=== PATIENT | male | born 2000 | race African-American/Black ===

== ENCOUNTER 2023-11-11 21:02 | Emergency (ER) | payer OTHER, SELFPAY ==
--- OUTSIDE RECORDS SUMMARY | 2023-11-11 21:05 | XMS REPORT | Continuity of Care Document ---
Author Name Unknown Address [address] [place] [address] [address] [place] [address] [facility] thconnect Address [address] [facility] [address] [facility] [place] [address] Care Team Providers Care Bolt Header Name Role Phone PCP, PATIENT DOES NOT HAVE A Primary Care Physic jethro Unavailable ARETHA BOUDREAUX Attending Clinician Unavailable Aretha Lucero Attending Clinician [phone] Unknown, Attending Attending Clinician Unavailab le Doctor Unassigned, [place] Attending Clinician U Dexter Covington Attending Clinician MITCH Yadav Attending Clinician Unavailable Mitch Jim MD Attending Clinician Physician, No Primary or Family Admitting Clinic jethro Unavailable MITCH JIM Admitting Clinician Unavailable Payers Payer Name Policy Type Policy Number Effective Date Expirati on Date Source Problems Condition Name Condition Details Condition Category Status Onset Date Resolution Date Last Treatment Date Treating Clinician Comments Source No known active problems No known active problems Disease [facility] Allergies, Adverse Reactions, Alerts Allergy Name Allergy Type Status Severity Reaction(s) Onset Date Inactive Date Treating Clinician Comments Source PENICILL IN DRUG INGREDI Active Unknown-Cmnt 10-19 00:00: 00 [facility] Penicill in Propensi ty to adverse reaction s Active Unknown - See comments 10-19 00:00: 00 [facility] Penicill ins DA Active [place] AMY 10-17 00:00: 00 [facility] Penicill ins DA Active MO AMY 06-27 00:00: 00 [facility] VERMOX DA Active U 09-10 00:00: 00 [facility] NO KNOWN ALLERGIE S Drug Class Active [facility] Social History Social Habit Start Date Stop Date Quantity Comments Source Exposure to SARS-CoV-2 (event) 2021-10-09 00:00:00 2021-10-19 20:43:00 Not sure [facility] Tobacco use and exposure 2021-10-19 00:00:00 2021-10-19 00:00:00 Never used [facility] Sex Assigned At 2000 00:00:00 2000 00:00:00 [facility] Smoking Status Start Date Stop Date Source Never smoker [facility] Unknown if ever smoked [facility] Medications Ordered Medication Name Filled Medication Name Start Date Stop Date Current Medication? Ordering Clinician Indication Dosage Frequency Signature (SIG) Comments Components Source predniSONE 20 mg tablet 10-19 00:00: 00 10-25 04:59 :00 No [id number] 40mg Take 2 tablets by mouth daily for 5 days. [facility] ketorolac (TORADOL) injection 60 mg 10-17 15:45: 00 10-17 15:00 :00 No 60mg 60 mg, Intramuscu lar, ONCE, 1 dose, 10/17/20 at 1045, NICKOLAS
Fa culty member approving Restricted medication : MITCH JIM [facility] diclofenac 75 mg EC tablet 10-17 00:00: 00 Yes [id number] 75mg Take 1 tablet by mouth 2 (two) times daily with meals. [facility] acetaminoph en (TYLENOL ARTHRITIS PAIN) 650 mg CR tablet 10-17 00:00: 00 Yes [id number] 650mg Take 1 tablet by mouth every 8 (eight) hours as needed for Pain. [facility] Vital Signs Vital Name Observation Time Observation Value Comments S dillon Systolic blood pressure 2021-10-20 01:42:00 122 mm[Hg] [facility] Diastolic blood pressure 2021-10-20 01:42:00 58 mm[Hg] [facility] Heart rate 2021-10-20 01:42:00 71 /min [facility] Body temperature 2021-10-20 01:42:00 36.89 Tammy [facility] Respiratory rate 2021-10-20 01:42:00 18 /min [facility] Body height 2021-10-20 01:42:00 182.9 cm [facility] Body weight 2021-10-20 01:42:00 61.236 kg [facility] BMI 2021-10-20 01:42:00 18.31 kg/m2 [facility] Oxygen saturation in Arterial blood by Pulse oximetry 2021-10-20 01:42:00 100 /min [facility] Systolic blood pressure 2020-10-17 14:13:00 132 mm[Hg] [facility] Diastolic blood pressure 2020-10-17 14:13:00 71 mm[Hg] [facility] Heart rate 2020-10-17 14:13:00 85 /min [facility] Body temperature 2020-10-17 14:13:00 37.11 Tammy [facility] Respiratory rate 2020-10-17 14:13:00 18 /min [facility] Body height 2020-10-17 14:13:00 182.9 cm [facility] Body weight 2020-10-17 14:13:00 56.7 kg [facility] BMI 2020-10-17 14:13:00 16.95 kg/m2 [facility] Oxygen saturation in Arterial blood by Pulse oximetry 2020-10-17 14:13:00 100 /min [facility] Procedures Procedure Date / Time Performed Performing Clinician Source [facility] STATEMENT OF PATIENT FINANCIAL RESPONSIBILITY 2021-10-19 05:01:00 Doctor Unassigned, [place] [facility] XR FOOT 3+ VW LEFT 2020-10-17 15:15:15 Andrea Jim [facility] CONSENT/REFUSAL FOR DIAGNOSIS AND TREATMENT 2020-10-17 14:05:48 Doctor Unassigned, [place] [facility] Encounters Start Date/Time End Date/Time Encounter Type Admission Type Attending [facility] Care Department Encounter ID Source 2021-10-19 20:45:00 2021-10-19 21:05:54 Outpatient R ARETHA BOUDREAUX [facility] [id number] [facility] 2021-10-19 20:45:00 2021-10-19 21:05:54 Urgent Care Aretha Boudreaux Unknown, Attending [facility] [id number] [facility] 2021-10-19 00:00:00 2021-10-19 00:00:00 Orders Only Doctor Unassigned, [place] [facility] [id number] [facility] 2021-10-17 21:52:00 2021-10-17 22:35:00 Emergency EM Dexter Lara [facility] VIKKI [id number] [facility] 2021-10-17 21:52:00 2021-10-17 22:35:00 Emergency EM Dexter Lara [facility] [id number] [facility] 2020-10-17 09:15:00 2020-10-17 11:44:00 Emergency X MITCH JIM [facility] ERT [id number] [facility] 2020-10-17 09:15:00 2020-10-17 11:44:00 Emergency Mitch Jim [facility] ([facility]) [id number] [facility] Notes Date/Time Note Provider Source 2021-10-17 22:19:00 [id number] [id number] [facility] ([facility])EMERGENCY PROVIDER REPORTREPORT#:[id number] REPORT STATUS: SignedDATE:10/17/21 TIME: 2218 PATIENT: PEARL ANTUNEZ UNIT #: [id number]#: [id number] ROOM/BED:AGE: 20 SEX: M PCP PHYS: No Primary or Family PhysicianSERVICE AUTHOR: Dexter Lara MD * ALL edits or amendments must be made on the electronic/computer document * HPI-Allergic Reaction Free Text HPI NotesFree Text HPI Ciorm51-yzzo-rlr male presents emergency department with generalized widespread rash after using a new brand of deodorant. He denies shortness of breath, wheezing, chest pain, dizziness or LOC. The patient also did not experience any nausea, vomiting or diarrhea. He has taken Benadryl and oyig-ezg-abgexet hydrocortisonecream which provided moderate relief followed by return of rash. GeneralInitial Greet Date/Time 10/17/212154 PresentationChief Complaint Allergic reaction Review of Systems ROS StatementsAll systems rev neg except as marked. Focused Review of SystemsSkinReports: Rash. Past Medical History - AdultStated Complaint ALLERGIC REACTION; RASHAllergiesCoded Allergies:Penicillins (Intermediate, AMY 10/17/21)Uncoded Allergies:VERMOX (12/08/08) Home MedicationsReported MedicationsNo Known Home Medications Smoking status: Smoking status for patients 13 years old or older: Never Smoker Physical Exam Vital SignsVital SignsFirst Documented: Result Date Time Pulse Ox 100 10/17 2152 B/P 126/71 10/17 2152 B/P Mean 89 10/17 2152 O2 Delivery Room air 10/17 2152 Temp 36.7 10/17 2152 Pulse 73 10/17 2152 Resp 17 10/17 2152 Last Documented: Result Date Time Pulse Ox 100 10/17 2152 B/P 126/71 10/17 2152 B/P Mean 89 10/17 2152 O2 Delivery Room air 10/17 2152 Temp 36.7 10/17 2152 Pulse 73 10/17 2152 Resp 17 10/17 2152 Review of Vital Signs Reviewed, Vital signs normal Focused PEGeneral/Const General/Const Awake, Alert, Well appearingMS Head Head NormocephalicEyes Eyes PERRL, No periorbital redness, No periorbital swelling, Conjunctiva NLEars/Nose/Throat Ears/Nose/Throat Airway patent, Mucous membranes moist, Pharynx NL, No pooling of secretions, No facial swellingResp/Chest Respiratory/Chest Breath sounds NL, Breath sounds = bilat, No respiratory distress, No rales, No rhonchi, No wheezing, No retractions, No stridorCardiovascular Cardiovascular Heart rate NL, Regular rhythm, Heart sounds NL, Peripheral circulation NLAbdomen/GI Abdomen/GI Soft, Non-tender, No guarding, No rebound, BS normoactiveSkin Skin Color NL Rash/Lesion Location Localized, Trunk, Axilla, Chest. Neurologic Neurologic Oriented X3, Speech NL, No motor deficits, No sensory deficits Re-Evaluation MDM Free Text MDM NotesFree Text MDM Fnpap23-cslj-uta male presents emergency department with complaints of rash and allergic reaction DDx include but not limited to allergic reaction, anaphylaxis, allergic dermatitis, eczema, contact dermatitis )( Re-Evaluation/Progress #1Text/Dict NotePatient instructed to discontinue the use of new deodorant. Patient was given Benadryl, Pepcid and prednisone while in the ED. Patient discharged, provided with strict return precautions and instructed to follow-up with primary care forTime of Re-Eval 2214)( Re-Eval Status Improved ED CourseMedication(s) OrderedMedication(s) Ordered:Antihistamine Drugs Sig/Armando Start time Last Medication Dose Route Stop Time Status Admin Diphenhydramine HCl 25 MG X1ED STA 10/17 2202 DC 10/17 PO 10/17 Gastrointestinal Drugs Sig/Armando Start time Last Medication Dose Route Stop Time Status Admin Famotidine 20 MG X1ED STA 10/18 2203 DC 10/17 PO 10/17 Hormones And Synthetic Substit Sig/Armando Start time Last Medication Dose Route Stop Time Status Admin Prednisone 40 MG X1ED STA 10/17 2202 DC 10/17 PO 10/18 2203 2210 Patient Discharge Departure Vital Signs/ConditionVital SignsFirst Documented: Result Date Time Pulse Ox 100 10/173 B/P 126/71 / 2153 B/P Mean 89 10/17 2153 O2 Delivery Room air 10/17 2152 Temp 36.7 /2152 Pulse 73 / 2153 Resp 17 10/17 2152 Last Documented: Result Date Time Pulse Ox 100 10/173 B/P 126/71 10/17 2153 B/P Mean 89 10/17 215 O2 Delivery Room air 10/17 2152 Temp 36.7 10/17 2152 Pulse 73 10/17 2152 Resp 17 10/17 2152 All vital signs available at the time of this entry have been reviewed. Condition Stable, Improved Clinical ImpressionClinical ImpressionPrimary Impression: Allergic reaction Disposition DecisionDischarge )( Discharged to Home Yes )( Time 0 )( Date 10/17/21 Discharge/Care PlanCounseled Regarding Diagnosis, Medication changes, Need for follow-up, When to return to ED(Auto) PrescriptionsCurrent Visit ScriptsNo Known Home Medications ReferralsResource [place] [facility] [place] Call for appointment Address: [facility] [place] [address] [place] [address] Quality MeasuresSmoking Cessation Screened, non user at 0238RPT #:[id number] OF REPORTEDEmergency department [id number]:19:[id number] ilable for patient [id number]:58:27 [facility]
[2023-11-11] MEDS ORDERED: FAMOTIDINE 20 MG/2 ML VIAL IV ONE (21:19)
[2023-11-11] MEDS ORDERED: METHYLPREDNISOLONE 125 MG INJ ONE (21:19)
[2023-11-11] MEDS ORDERED: DIPHENHYDRAMINE 50 MG/ML VIAL ONE (21:19)
[2023-11-11] MEDS ORDERED: NA CHLORIDE 0.9% 1,000 ML ONE (21:19)
--- NOTE | 2023-11-11 22:30 | ER ---
Nurse's Notes [facility] Name: Jennifer Arcos Age: 22 yrs Sex: Male : 2000 Arrival Date: 11/11/2023 Time: 21:02 Bed 18 Private MD: Diagnosis: Urticaria, unspecified Presentation: 11/10 21:15 Chief complaint: Patient states: I started having some swelling in my face about 20-30 jw7 minutes ago due to a possible allergic reaction. 21:15 Coronavirus screen: At this time, the client does not indicate any symptoms associated jw7 with coronavirus-19. Ebola Screen: No symptoms or risks identified at this time. Onset: The symptoms/episode began/occurred acutely. Anaphylaxis evaluation, no signs or symptoms of anaphylaxis were noted. Initial Sepsis Screen: Does the patient meet any 2 criteria? No. Patient's initial sepsis screen is negative. Does the patient have a suspected source of infection? No. Patient's initial sepsis screen is negative. Risk Assessment: Do you want to hurt yourself or someone else? Patient reports no desire to harm self or others. Onset of symptoms was November 11, 2023. Care prior to arrival: Medication(s) given: Benadryl. 21:15 Method Of Arrival: Ambulatory jw7 21:15 Acuity: LUCIA 3 jw7 Triage Assessment: 21:15 General: Appears in no apparent distress. comfortable, Behavior is calm, cooperative, jw7 appropriate for age. Pain: Denies pain. EENT: Reports Swelling to face. Neuro: Level of Consciousness is awake, alert, obeys commands, Oriented to person, place, time, situation, Appropriate for age. Cardiovascular: Heart tones S1 S2 present Capillary refill < 3 seconds Clubbing of nail beds is absent JVD is absent Patient's skin is warm and dry. Respiratory: Airway is patent Trachea midline Respiratory effort is even, unlabored, Respiratory pattern is regular, symmetrical, Breath sounds are clear bilaterally. GI: Abdomen is flat, non-distended, Bowel sounds present X 4 quads. Abd is soft and non tender X 4 quads. : No deficits noted. No signs and/or symptoms were reported regarding the genitourinary system. Derm: Skin is intact, is healthy with good turgor, Skin is dry, Skin is normal, Skin temperature is warm Reports Swelling to face. Musculoskeletal: Circulation, motion, and sensation intact. Range of motion: intact in all extremities. Historical: - Allergies: 21:15 No Known Allergies; jw7 - Home Meds: 21:15 None [Active]; jw7 - PMHx: 21:15 None; jw7 - PSHx: 21:15 None; jw7 - Immunization history:: Adult Immunizations up to date, Client reports having NOT received the Covid vaccine. Flu vaccine is up to date. - Infectious Disease History:: Denies. - Social history:: Smoking status: Reported history of juuling and/or vaping. Patient/guardian denies using alcohol, street drugs, IV drugs. Screenin:15 [facility] ED Fall Risk Assessment (Adult) History of falling in the last 3 months, jw7 including since admission No falls in past 3 months (0 pts) Confusion or Disorientation No (0 pts) Intoxicated or Sedated No (0 pts) Impaired Gait No (0 pts) Mobility Assist Device Used No (0 pt) Altered Elimination No (0 pt) Score/Fall Risk Level 0 - 2 = Low Risk Oriented to surroundings, Maintained a safe environment, Educated pt \T\ family on fall prevention, incl call for assistance when getting out of bed. Abuse screen: Denies threats or abuse. Denies injuries from another. Nutritional screening: No deficits noted. Tuberculosis screening: No symptoms or risk factors identified. Assessment: 21:15 General: See Triage Assessment. jw7 21:44 Respiratory: Airway is patent Trachea midline Respiratory effort is even, unlabored, jw7 Respiratory pattern is regular, symmetrical. 22:00 Reassessment: Patient appears in no apparent distress at this time. No changes from jw7 previously documented assessment. Patient and/or family updated on plan of care and expected duration. Pain level reassessed. Patient is alert, oriented x 3, equal unlabored respirations, skin warm/dry/pink. 22:00 Respiratory: Airway is patent Trachea midline Respiratory effort is even, unlabored, jw7 Respiratory pattern is regular, symmetrical, Breath sounds are clear bilaterally. 22:50 Reassessment: Patient appears in no apparent distress at this time. No changes from jw7 previously documented assessment. Patient and/or family updated on plan of care and expected duration. Pain level reassessed. Patient is alert, oriented x 3, equal unlabored respirations, skin warm/dry/pink. Vital Signs: 21:15 BP 123 / 84; Pulse 61; Resp 18 S; Temp 38.2; Pulse Ox 100% on R/A; Weight 65.77 kg; jw7 Height 5 ft. 10 in. ; Pain 0/10; 21:30 BP 123 / 84; Pulse 64; Resp 16 S; Pulse Ox 96% on R/A; jw7 22:00 BP 105 / 70; Pulse 75; Resp 15 S; Pulse Ox 100% on R/A; jw7 21:15 Body Mass Index 20.81 (65.77 kg, 177.8 cm) jw7 21:15 Pain Scale: Adult jw7 ED Course: 21:04 Patient arrived in ED. mr 21:06 Ana Ortiz FNP-C is [facility]. kb 21:06 Deion Ashby MD is Attending Physician. kb 21:15 Jeanine Mclain RN is Primary Nurse. jw7 21:15 Arm band placed on. jw7 21:15 Patient has correct armband on for positive identification. Bed in low position. Call jw7 light in reach. Provided Education on: Use of Call Light. 21:15 Inserted saline lock: 22 gauge in right forearm, using aseptic technique. jw7 21:41 Triage completed. jw7 22:40 No provider procedures requiring assistance completed. IV discontinued, intact, jw7 bleeding controlled, No redness/swelling at site. Pressure dressing applied. Administered Medications: 21:30 Drug: NS 0.9% IV 1000 ml IV at 1000 ml once Route: IV; Rate: 1000 ml; Site: right jw forearm; 22:50 Follow up: Response: No adverse reaction; IV Status: Completed infusion; IV Intake: jw7 1000ml 21:30 Drug: MethylPrednisoLONE IVP 125 mg IVP once Route: IVP; Site: right forearm; jw7 22:50 Follow up: Response: No adverse reaction; Marked relief of symptoms jw7 21:30 Drug: Famotidine IVP 20 mg IVP once; dilute with 10 mL 0.9% NaCl; give over 2 minutes jw7 Route: IVP; Site: right forearm; 22:50 Follow up: Response: No adverse reaction; Marked relief of symptoms jw7 21:30 Drug: diphenhydrAMINE IVP 25 mg IVP once Route: IVP; Site: right forearm; jw7 22:50 Follow up: Response: No adverse reaction; Marked relief of symptoms; Pain is decreased jw7 Medication: 22:49 VIS not applicable for this client. jw7 Intake: 22:50 IV: 1000ml; Total: 1000ml. jw7 Outcome: 22:30 Discharge ordered by . zeina 22:40 Discharged to home ambulatory, jw7 22:40 Condition: stable 22:40 Discharge instructions given to patient, Instructed on discharge instructions, follow up and referral plans. medication usage, Demonstrated understanding of instructions, follow-up care, medications, Prescriptions given X 2, 22:50 Patient left the ED. jw7 Signatures: Ana Ortiz, WAGE HAND-C WAGE HAND-CkLeila Maradiaga, Reg Reg Jeanine Rogel, RN RN jw7
--- NOTE | 2023-11-11 22:30 | EDPHYS ---
Physician Documentation [facility] Name: Jennifer Arcos Age: 22 yrs Sex: Male : 2000 Arrival Date: 11/11/2023 Time: 21:02 Bed 18 Private MD: ED Physician Deion Ashby HPI: 11/10 22:40 This 22 yrs old Black Male presents to ER via Ambulatory with complaints of Allergic kb Reaction, Breathing Difficulty. 22:40 Patient is a 22-year-old male who presents for rash and swelling to face and chest that kb started approximately 30 minutes prior to arrival. States he was at a crawfish boil and ate the same things that he has eaten in the past but the seasonings might have been different. Denies shortness of breath.. Historical: - Allergies: 21:15 No Known Allergies; jw7 - Home Meds: 21:15 None [Active]; jw7 - PMHx: 21:15 None; jw7 - PSHx: 21:15 None; jw7 - Immunization history:: Adult Immunizations up to date, Client reports having NOT received the Covid vaccine. Flu vaccine is up to date. - Infectious Disease History:: Denies. - Social history:: Smoking status: Reported history of juuling and/or vaping. Patient/guardian denies using alcohol, street drugs, IV drugs. ROS: 22:36 Constitutional: As per HPI kb Exam: 22:36 Constitutional: This is a well developed, well nourished patient who is awake, alert, kb and in no acute distress. Head/Face: Normocephalic, atraumatic. ENT: Moist Mucous membranes Cardiovascular: Regular rate Respiratory: Respirations even and unlabored. No increased work of breathing. Talking in full sentences Abdomen/GI: Soft, non-tender. No distention MS/ Extremity: Pulses equal, no cyanosis. Neurovascular intact. Full, normal range of motion. Neuro: Awake and alert, GCS 15, oriented to person, place, time, and situation. Moves all extremities. Normal gait. 22:36 Skin: rash a mild rash is noted, rash can be described as urticarial, on the face, chest and abdomen, Vital Signs: 21:15 BP 123 / 84; Pulse 61; Resp 18 S; Temp 38.2; Pulse Ox 100% on R/A; Weight 65.77 kg; jw7 Height 5 ft. 10 in. ; Pain 0/10; 21:30 BP 123 / 84; Pulse 64; Resp 16 S; Pulse Ox 96% on R/A; jw7 22:00 BP 105 / 70; Pulse 75; Resp 15 S; Pulse Ox 100% on R/A; jw7 21:15 Body Mass Index 20.81 (65.77 kg, 177.8 cm) jw7 21:15 Pain Scale: Adult jw7 MDM: 21:06 Patient medically screened. kb 22:37 Differential diagnosis: anaphylaxis, angioedema, urticaria. Data reviewed: vital signs, kb nurses notes. Counseling: I had a detailed discussion with the patient and/or guardian regarding the historical points, exam findings, and any diagnostic results supporting the discharge/admit diagnosis, the need for outpatient follow up, a family practitioner, to return to the emergency department if symptoms worsen or persist or if there are any questions or concerns that arise at home. Response to treatment: the patient's symptoms have markedly improved after treatment. 11/10 21:11 Order name: IV Start; Complete Time: 21:45 kb Administered Medications: 21:30 Drug: NS 0.9% IV 1000 ml IV at 1000 ml once Route: IV; Rate: 1000 ml; Site: right jw forearm; 22:50 Follow up: Response: No adverse reaction; IV Status: Completed infusion; IV Intake: jw7 1000ml 21:30 Drug: MethylPrednisoLONE IVP 125 mg IVP once Route: IVP; Site: right forearm; jw7 22:50 Follow up: Response: No adverse reaction; Marked relief of symptoms jw7 21:30 Drug: Famotidine IVP 20 mg IVP once; dilute with 10 mL 0.9% NaCl; give over 2 minutes jw7 Route: IVP; Site: right forearm; 22:50 Follow up: Response: No adverse reaction; Marked relief of symptoms jw7 21:30 Drug: diphenhydrAMINE IVP 25 mg IVP once Route: IVP; Site: right forearm; jw7 22:50 Follow up: Response: No adverse reaction; Marked relief of symptoms; Pain is decreased jw7 Disposition Summary: 11/11/23 22:30 Discharge Ordered Notes: Location: Home kb Condition: Stable kb Diagnosis - Urticaria, unspecified kb Followup: kb - With: Emergency Department - When: As needed - Reason: Worsening of condition Followup: kb - With: Private Physician - When: 2 - 3 days - Reason: Recheck today's complaints, Continuance of care, Re-evaluation by your physician Discharge Instructions: - Discharge Summary Sheet kb - Hives, [id number]-Rwfw kb Forms: - Medication Reconciliation Form kb - Antibiotic Education kb - Prescription Opioid Use kb - Patient Portal Instructions kb - Leadership Thank You Letter kb Prescriptions: - Pepcid 20 mg Oral Tablet - take 1 tablet ORAL route every 12 hours for 5 days; 10 tablet; Refills: 0, kb Product Selection Permitted - Prednisone 20 mg Oral Tablet - take 2 tablets ORAL route once daily for 5 days; 10 tablet; Refills: 0, Product kb Selection Permitted Addendum: 11/13/2023 01:17 I was immediately available for consultation during this patient's visit. I did not e c2 personally see the patient or discuss the patient with the AUTUMN. . Signatures: Ana Ortiz FNP-Gladys GARCIA-Jeanine Ovalles RN RN jw7 Deion Ashby MD MD ec2
[2023-11-11 23:29] VITALS: TEMP 38.2
[2023-11-11 23:47] VITALS: BP 105/70; O2SAT 100
== END 2023-11-11 22:50 | disposition home or self-care (01) ==
LOC: ER 21:02
DX: L50.9 Urticaria, unspecified (principal); Z28.310 Unvaccinated for COVID-19
CPT/HCPCS: 96361; 96375; 96374; 99284; J1200; J2919; J7030